=== PATIENT | female | born 1985 | race Two or more races ===

== ENCOUNTER 2023-02-04 00:01 | Inpatient (IN) | payer OTHER ==
[~2023-02-04] VITALS: Ht 170.2 cm; Wt 112.5 kg
== END 2023-02-06 13:01 | disposition home or self-care (01) | DRG 807 ==
LOC: LDR 00:01 → OB/GYN 00:01
PROVIDERS: ADMIT Obstetrics & Gynecology; ATTEND Obstetrics & Gynecology
PROC: 10E0XZZ Delivery of Products of Conception, External Approach (ICD-10-PCS; principal; 2023-02-04)
PROC: 0HQ9XZZ Repair Perineum Skin, External Approach (ICD-10-PCS; 2023-02-04)
PROC: 4A1HXCZ Monitoring of Products of Conception, Cardiac Rate, External Approach (ICD-10-PCS; 2023-02-04)
DX: O70.0 First degree perineal laceration during delivery (principal); Z37.0 Single live birth; O99.824 Streptococcus B carrier state complicating childbirth; Z3A.38 38 weeks gestation of pregnancy; Z20.822 Contact with and (suspected) exposure to COVID-19